=== PATIENT | male | born 1955 | race Caucasian/White ===

== ENCOUNTER 2024-04-17 09:04 | Outpatient (CLI) | payer MEDICARE, BC ==
[2024-04-17 10:06] VITALS: PULSE 96; RESP 14; O2SAT 96
== END 2024-04-17 23:59 | disposition home or self-care (01) ==
LOC: RT 09:04
PROVIDERS: ATTEND Student in an Organized Health Care Education/Training Program
DX: J44.9 Chronic obstructive pulmonary disease, unspecified (principal); R06.09 Other forms of dyspnea; Z87.891 Personal history of nicotine dependence
CPT/HCPCS: 94010; 94729; 94760